=== PATIENT | female | born 1995 | race American Indian/Alaskan Native ===

== ENCOUNTER 2017-12-09 21:42 | Emergency (ER) | payer OTHER ==
[2017-12-09 22:03] VITALS: BP 121/77
[2017-12-09] MEDS ORDERED: MOTRIN ONE (22:05)
[2017-12-09] MEDS: NORCO 5/325 PO ONE (22:13)
[2017-12-09] MEDS: MOTRIN PO ONE (22:13)
--- NOTE | 2017-12-09 23:08 | XRay Report ---
FINAL REPORT PROCEDURE: Right foot. TECHNIQUE: Three views. HISTORY: pain, swelling, deformity R great toe COMPARISON: No prior studies are available for comparison. FINDINGS: The bones appear intact without fracture or dislocation. The joint spaces appear normal. The soft tissues are unremarkable. IMPRESSION: Normal study.
--- NOTE | 2017-12-10 03:23 | Emergency Department Report ---
ED Lower Extremity HPI - General Chief Complaint: Extremity Injury, Lower Stated Complaint: FOOT PAIN Time Seen by Provider: 12/10/17 03:01 Source: family Mode of arrival: Ambulatory Limitations: No Limitations - History of Present Illness Initial Comments: 22-year-old female comes in complaining of right big toe pain and injury. Patient reports that she was playing soccer and was pushed up against a hard object. Patient reports her pain is a minimal. Patient reports she is up-to-date in all vaccines. Complaint: foot injury Injury: Toes: Right (great toe) Type of Injury: blunt, hyperflexion Place: school Severity scale (0 -10): 4 - Related Data Allergies Allergy/AdvReac Type Severity Reaction Status Date / Time No Known Allergies Allergy Verified 12/09/17 22:24 ED Review of Systems ROS: Stated complaint: FOOT PAIN Other details as noted in HPI Musculoskeletal: arthralgia (right big toe) ED Physical Exam - General Limitations: No Limitations - Expanded Lower Extremity Exam Left Lower Leg exam: Present: normal inspection, full ROM Ankle exam: Present: normal inspection, full ROM Foot/Toe exam: Present: deformity (right great toe), dislocation (right great toe). Absent: tenderness, ecchymosis Neuro vascular tendon exam: Present: no vascular compromise. Absent: abnormal cap refill, extremity cold to touch Gait: Positive: antalgic - Back Exam Back exam: Present: normal inspection - Neurological Exam Neurological exam: Present: alert, oriented X3 - Psychiatric Psychiatric exam: Present: normal affect, normal mood - Skin Skin exam: Present: warm, dry, intact, normal color. Absent: rash ED Course Vital Signs 12/09/17 12/09/17 21:59 22:13 Temperature 98.3 F Pulse Rate 81 Respiratory 18 18 Rate Blood Pressure 121/77 O2 Sat by Pulse 100 Oximetry ED Lower Extremity MDM - Radiology Data Radiology results: report reviewed, image reviewed interpreted by me: Patient has a proximal metatarsal dislocation first digit left foot FINAL REPORT PROCEDURE: Right foot. TECHNIQUE: Three views. HISTORY: pain, swelling, deformity R great toe COMPARISON: No prior studies are available for comparison. FINDINGS: The bones appear intact without fracture or dislocation. The joint spaces appear normal. The soft tissues are unremarkable. IMPRESSION: Normal study. Transcribed By: MRM Dictated By: WING DURAN MD Electronically Authenticated By: WING DURAN MD Signed Date/Time: 12/09/172303 DD/ 03 TD/TT: 12/09/172303 Critical care attestation.: If time is entered above; I have spent that time in minutes in the direct care of this critically ill patient, excluding procedure time. ED Disposition Clinical Impression: Toe joint dislocation Qualifiers: Encounter type: initial encounter Laterality: right Qualified Code(s): S93.104A - Unspecified dislocation of right toe(s), initial encounter Disposition: DC- TO HOME OR SELFCARE Is pt being admited?: No Does the pt Need Aspirin: No Condition: Stable Additional Instructions: You can take [id number] Tylenol or Motrin for pain. Please increase your water intake by 2 L while taking Motrin. Referrals: LORRAINE BERRY MD [Primary Care Provider] - 3-5 Days Forms: Work/School Release Form(ED), Accompanied Note
== END 2017-12-10 03:25 | disposition home or self-care (01) ==
LOC: ED 21:42
DX: S93.104A Unspecified dislocation of right toe(s), initial encounter (principal); W22.8XXA Striking against or struck by other objects, initial encounter; Y93.66 Activity, soccer; Y92.322 Soccer field as the place of occurrence of the external cause; Y99.8 Other external cause status